=== PATIENT | female | born 1980 | race Caucasian/White ===

== ENCOUNTER 2018-10-02 00:08 | Inpatient (IN) | payer OTHER ==
[2018-10-02] VITALS (12 sets, daily range): BP systolic 107–146; BP diastolic 62–117
[~2018-10-02] VITALS: Ht 165.1 cm; Wt 118.4 kg
[~2018-10-02 00:08] MED LIST: CHOL500016 PO; CLON-331 PO; CYCL10TA29 PO; GABA-549 PO; LACT1CAP6 PO; LORA1TAB69 PO; MULT-1335 PO; NORE1TAB37 PO; OMEP-125 PO; VENL75CA58 PO; VITA-175 PO
[2018-10-02] MEDS ORDERED: ceFAZolin(*) 1 GM VIAL 3 GM in NS(*) 0.9% 100 ML BAG 100 ML IVPB ONE (08:20)
[2018-10-02] MEDS ORDERED: REMIFENTANIL HCL 1 MG VIAL ONE (08:35)
[2018-10-02] MEDS ORDERED: LIDOCAINE/SOD BICARB 8.4% SYR ID ONE (09:25)
[2018-10-02] MEDS ORDERED: BACITRACIN 50000 UNIT/VIAL 50,000 UNIT in NS 0.9% IRRIG(*) 1000ML PLCT 1,000 ML IR PRN (09:25)
[2018-10-02] MEDS ORDERED: FAMOTIDINE 20 MG/50 ML PREMIX IVPB ONE (09:25)
[2018-10-02] MEDS ORDERED: ceFAZolin(*) 2GM/D5W 50ML 50 ML IVPB ONE (09:25)
[2018-10-02] MEDS ORDERED: MIDAZOLAM 2 MG/2 ML VIAL IVP PRN (09:25)
[2018-10-02] MEDS ORDERED: NORMOSOL R SOLN(*) 1000 ML BAG 1,000 ML IV PRN (09:25)
[2018-10-02] MEDS ORDERED: ACETAMINOPHEN(*)1000 MG/100 ML 100 ML IVPB ONE (09:25)
[2018-10-02] MEDS ORDERED: PHENYLEPHRINE 10 MG/1 ML VIAL ONE (09:38)
[2018-10-02] MEDS ORDERED: ROCURONIUM BROM 10 MG/ML 5 ML ONE (09:38)
[2018-10-02] MEDS ORDERED: VANCOMYCIN 1 GM VIAL ONE (10:44)
[2018-10-02] MEDS ORDERED: ROPIVACAINE 0.2% 20 ML VIAL ONE (10:44)
[2018-10-02] MEDS ORDERED: HYDROmorphone HCL 2 MG/ML SDV ONE ×2 (10:59→12:20)
[2018-10-02] MEDS ORDERED: PROPOFOL EMUL(*) 10MG/ML 20 ML 180 ML ONE (11:18)
[2018-10-02] MEDS ORDERED: ONDANSETRON 4 MG/2 ML VIAL ONE (11:18)
[2018-10-02] MEDS ORDERED: DEXAMETHASONE SOD PHOS 10MG/ML ONE (11:18)
[2018-10-02] MEDS ORDERED: fentaNYL CITR 100 MCG/2 ML AMP ONE (11:47)
--- NOTE | 2018-10-02 12:21 | OPERATIVE REPORT 1 ---
EVENT DATE: October 02, 2018 SURGEON: Tylor Wyman MD ANESTHESIOLOGIST: Roddy Ewing MD ANESTHESIA: General endotracheal anesthesia. 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 POSTOPERATIVE DIAGNOSIS Failed cervical disk arthroplasty at C5-C7 with persistent neck pain. PROCEDURE PERFORMED 1. Removal of cervical disk arthroplasty. 2. Revision cervical diskectomy and fusion. 3. Placement of interbody device with fixation screws. IV FLUIDS 900 cc. ESTIMATED BLOOD LOSS 40 cc. IMPLANTS Size small 8 mm tall 6-degree lordotic interbody device from [employer] and 3.5 mm x 14 mm fixation screws from [employer]. SPECIMENS None. DRAINS 10-Filipino round Phillip-Neil drain. COMPLICATIONS None. DISPOSITION Post-Anesthesia Care Unit. INDICATIONS Ms. Kilgore is a 37-year old female who back in February 2017 underwent C6-C7 cervical disk arthroplasty at an outside facility. The surgery relieved her arm pain but the neck pain that she was having actually became worse. Over time, her arm symptoms essentially resolved. The neck pain was persistent, going from the neck into the periscapular region and then down the right arm. 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 She was, therefore, sent for bilateral facet injections at C6-C7 and she actually got good relief of her symptoms with that intervention so I ultimately offered her a revision surgery in the form of removal of the cervical disk arthroplasty device, revision, anterior cervical diskectomy and an interbody fusion using a Titan titanium interbody device. Prior to surgery, I explained in detail to the patient the possible risks of surgery. These risks include bleeding, infection, damage to surrounding structures, nerve root injury, spinal cord injury, spinal fluid leak, need for further surgery, persistent and/or worsening pain, , blindness, sexual dysfunction, autonomic nervous system dysfunction and other unforeseen medical and surgical complications. An understanding that in general spinal surgery is more predictive at improving extremity than arm pain was stressed. We also stressed the fact that due to the revision nature of the procedure outcomes are not necessarily as good and that there is a higher risk of potential complication secondary to the presence of scar tissue. She voiced an understanding. DESCRIPTION OF PROCEDURE On the date of surgery, the patient was met in the preoperative hold area and all questions were answered. The operative site was identified and marked by myself. Prior to surgery, she had been sent to an ENT physician for evaluation of the vocal cords, which were functioning normally bilaterally so we elected to go in on the right side versus the left side where the previous surgery had been performed. The patient was brought in good condition to the operating room and after succumbing to anesthesia was positioned in the supine position on a standard OR bed. All bony protuberances and soft tissues were well padded in the standard fashion. Care was taken to maintain appropriate perfusion pressures during anesthesia. Preoperative antibiotics were administered according to the appropriate timing schedule. At the conclusion of the procedure, sponge and needle counts were correct x2. A final time-out was undertaken by members of the operating team, confirming correct patient, correct levels and correct surgery. The patient was then prepped and draped in the standard sterile orthopedic fashion and a transverse incision was made on the right side of the cervical spine overlying the intended surgical levels. Sharp dissection was carried down to the platysma, which was divided. The interval medial to the sternocleidomastoid muscle was identified and a finger was used to palpate the carotid pulse. Blunt finger dissection was carried out medial to the carotid sheath coming down onto the anterior cervical spine. Self-retaining retractors were placed and distracted over the previously implant and a microscope was brought into the field. [place] pins were placed into the vertebral bodies of C6 and C7 and distracted. This distraction allowed us to examine the status of the disk arthroplasty device and it was immediately noted that there was no bonding or adhesion to the inferior C6 endplate. I was easily able to mobilize the superior metal portion of the implant and then I was able to use a forward angled curette to hook and remove the peak center of the implant. After that, it was quite easy to remove the metal endplate portion of the device superiorly and then I used an osteotome to tap against the inferior metal portion of the implant and that also came off of the C7 endplate quite easily and was also removed. The wound was irrigated with copious sterile saline solution and then I used forward angled and back angled curettes to complete the diskectomy and ensure good decompression of the foramina bilaterally. A #3 Kerr[place] was also used to remove further disk material from the foramen bilaterally and ensure good decompression. The inferior endplate of C6 was then burred down with a high-speed bur to ensure bleeding bone across both surfaces. I trialed an 8 mm rasp and that fit nicely so we first chose a size medium 8 mm high device and tapped that into place and then placed the fixation screws into the endplates through the integrated holes in the device. A lateral radiograph showed that device was perhaps a millimeter prowled into the spinal canal so I elected to revise that interbody spacer with a size small interbody spacer. This was tapped into place after removal of the medium implant and fixed in place with two 3.5 mm x 14 mm fixation screws. A lateral radiograph confirmed that it was in good position with no protrusion into the canal and was not prowled anteriorly. The screws were in good position as well. The wound was then irrigated with copious sterile saline and closed in layers using interrupted sutures for the platysma, inverted interrupted sutures for the subcutaneous tissue and then a running subcuticular skin stitch. A 10- Filipino round Phillip-Neil drain was left deep to the platysma. POSTOPERATIVE CARE PLAN The patient will remain in the hospital overnight. Her drain will be removed in the morning and she will likely be discharged home tomorrow. She will follow up with me in two weeks for wound check and examination. GAEL
[2018-10-02] MEDS ORDERED: DIAZEPAM 5 MG TAB PO PRN (13:10)
[2018-10-02] MEDS ORDERED: LR(*) 1000 ML BAG 1,000 ML IV PRN (13:10)
[2018-10-02] MEDS ORDERED: HYDROmorphone HCL 2 MG/ML SDV IVP PRN (13:10)
[2018-10-02] MEDS ORDERED: MAGNESIUM HYDROXIDE* 30ML UDCP PO PRN (13:10)
[2018-10-02] MEDS ORDERED: BENZOCAINE/MENTHOL 1 EACH LOZG PO PRN (13:10)
[2018-10-02] MEDS ORDERED: ACETAMINOPHEN 500 MG TAB PO PRN (13:10)
[2018-10-02] MEDS ORDERED: diphenhydrAMINE 25 MG CAP PO PRN (13:10)
[2018-10-02] MEDS ORDERED: ACETAMINOPHEN(*)1000 MG/100 ML 100 ML IVPB PRN (13:10)
[2018-10-02] MEDS ORDERED: FLUSH 10 ML SYR IVP PRN (13:10)
[2018-10-02] MEDS ORDERED: BISACODYL 10 MG SUPP PR PRN (13:10)
[2018-10-02] MEDS ORDERED: ONDANSETRON 4 MG/2 ML VIAL IVP PRN (13:10)
[2018-10-02] MEDS: APAP/HYDROCODONE 325/5 TAB PO PRN ×3 (13:31→22:29)
--- NOTE | 2018-10-02 13:53 | RADIOLOGY IMAGING REPORT ---
FACILITY: [facility] - [place] PATIENT NAME: Ruth nAn Kilgore : 1980 MR: [id number] V: [id number] EXAM DATE: ORDERING PHYSICIAN: CHAPIN BRIONES TECHNOLOGIST: Location: [facility] - [place] Patient: Ruth Ann Kilgore : 1980 Visit/Account:[id number] Date of Sevice: 10/02/2018 Exam type: CERVICAL SPINE 2 OR 3 VIEW History: ANTERIOR C6-7 DISCECTOMY FUSION WITH INSTRUMENTATION Comparison: November 07, 2017. Findings: A single cross table lateral view of the cervical spine demonstrates postsurgical changes from anteri or fusion at C6-7 with placement of support screws and intervertebral support cage. C7 is not ideall y seen due to technical factors. Incidentally noted is an endotracheal tube IMPRESSION: 1. As above Report Dictated By: Maral Naranjo MD at 10/02/2018 1:46 PM Report E-Signed By: Maral Naranjo MD at 10/02/2018 1:48 PM WSN:[id number]
[2018-10-02] MEDS ORDERED: BACITRACIN OINT 15 GM TUBE TP PRN (14:20)
--- NOTE | 2018-10-02 14:25 | Hospitalist Consultation ---
History of Present Illness Requesting Physician Dr. Wyman Reason for Consult Medical Management of comorbidities Chief Complaint s/p cervical disk arthroplasty History of Present Illness She was admitted s/p cervical disk arthroplasty. It is reported the surgery went well and without complication. History Problems: (1) GERD (gastroesophageal reflux disease) Status: Chronic (2) Depression Status: Chronic Home Meds Reported Medications Norethindrone-Ethinyl Estrad (PIRMELLA) 1 Each Tablet, PO QDAY 09/25/18 Lactobacillus Combination No.4 (PROBIOTIC) 1 Each Capsule, 1 EACH PO QDAY, CAPSULE 09/25/18 Cholecalciferol (Vitamin D3) (VITAMIN D3) 5,000 Unit Capsule, 5000 UNIT PO QDAY, CAPSULE 09/25/18 Vitamin B Complex (B COMPLEX) 1 Each Tablet, 1 EACH PO QDAY 09/25/18 Multivitamin With Minerals (MULTIPLE VITAMIN) 1 Each Tablet, 1 EACH PO DAILY, TAB 09/25/18 Omeprazole (OMEPRAZOLE) 20 Mg Capsule.dr, 1 CAP PO QDAY, CAP 09/25/18 Clonazepam (CLONAZEPAM) 0.5 Mg Tablet, 0.5 MG PO PRN, #6 TAB 09/25/18 Loratadine/Pseudoephedrine (CLARITIN-D 24 HOUR TABLET) 1 Each Tab.er.24h, 1 EACH PO QDAY 09/25/18 Venlafaxine Hcl (EFFEXOR XR) 75 Mg Cap.er.24h, 75 MG PO QDAY 09/25/18 Cyclobenzaprine Hcl (CYCLOBENZAPRINE HCL) 10 Mg Tablet, 10 MG PO QDAY, #9 TAB 09/25/18 Gabapentin (GABAPENTIN) 300 Mg Capsule, 1200 MG PO TID, CAPSULE 09/25/18 Allergies: Coded Allergies: adhesive (Verified Allergy, Mild, RASH, 09/25/18) Patient History: FH: CHF (congestive heart failure) FH: diabetes mellitus Hx Smoking: No Smoking Status: Never Smoker Caffeine Intake: Soda Caffeine/Cups Per Day: 2 CANS/DAY Hx Substance Use Disorder: No Social Drug Use: Never History of IV Drug Use: No Review of Systems All Systems Reviewed/Normal: Yes, Except as Noted Exam Vital Signs Vital Signs Date Time Temp Pulse Resp B/P (MAP) Pulse Ox O2 Delivery O2 Flow Rate FiO2 10/02/18 13:45 83 116/107 (110) 96 2.0 10/02/18 13:17 Nasal Cannula 10/02/18 13:17 98.1 16 General Appearance: Alert, Awake, No Acute Distress, Afebrile Neuro: No Gross deficits Cardiovascular: Regular Rate and Rhythm Respiratory: No Respiratory Distress, Clear to Auscultation Psych: Alert & Oriented X3, Appropriate Mood & Affect Assessment and Plan Problems: (1) S/P cervical discectomy Status: Acute Assessment & Plan: Followed by Dr. Wyman. (2) Depression Status: Chronic Assessment & Plan: Continue chronic Effexor. (3) GERD (gastroesophageal reflux disease) Status: Chronic Assessment & Plan: Continue chronic PPI. Venous Thromboembolism Antithrombotics Is Pt On Any Antithrombotics?: No Exam Sepsis Risk: No Definite Risk KAREN KEYES E [employer] Oct 02, 2018 14:25
[2018-10-02] MEDS: oxyCODONE HCL 5 MG CAP PO PRN ×2 (16:17→19:48)
--- NOTE | 2018-10-02 16:25 | NUR ---
Physical Therapy Impression PT eval complete. Pt demonstrated safe and independent functional mobility. Pt safe to DC when medically appropriate. Physical Therapy Goals Patient's Goals
[2018-10-02] MEDS ORDERED: NS(*) 0.9% 500 ML BAG 500 ML ONE (16:59)
[2018-10-02] MEDS: ceFAZolin 3 GM in NS 0.9% 100 ML BAG IVPB SCH (17:05)
[2018-10-02] MEDS ORDERED: HYDROCORTISONE 1% CR 28.35 GM TP PRN (20:10)
[2018-10-02] MEDS: DOCUSATE SODIUM 100 MG CAP PO SCH ×2 (20:43→20:46)
[2018-10-02] MEDS: GABAPENTIN 300 MG CAP PO SCH (20:43)
[2018-10-03] MEDS: ceFAZolin 3 GM in NS 0.9% 100 ML BAG IVPB SCH ×2 (00:39→08:32)
[2018-10-03 03:02] VITALS: BP 101/70
[2018-10-03] MEDS: APAP/HYDROCODONE 325/5 TAB PO PRN ×2 (03:07→09:39)
[2018-10-03] MEDS ORDERED: DOCU240C84 PO (07:32)
[2018-10-03] MEDS ORDERED: LOR5/325 PO (07:32)
[2018-10-03 07:46] VITALS: BP 99/63
[2018-10-03] MEDS: oxyCODONE HCL 5 MG CAP PO PRN (07:53)
[2018-10-03] MEDS: GABAPENTIN 300 MG CAP PO SCH (08:32)
[2018-10-03] MEDS: DOCUSATE SODIUM 100 MG CAP PO SCH (08:33)
[2018-10-03] MEDS ORDERED: VENLAFAXINE XR 75 MG CAPCR PO SCH (09:00)
[2018-10-03] MEDS ORDERED: PANTOPRAZOLE SOD 40 MG TABEC PO SCH (09:00)
--- NOTE | 2018-10-03 09:19 | Hospitalist Progress Note ---
Subjective Progress Notes Subjective She was admitted s/p cervical spine surgery. She had no acute events overnight. She would like to go home today. Patient Complains of: Cardiovascular: No: Chest Pain Respiratory: No: Shortness of Breath Physical Exam Vital Signs Date Time Temp Pulse Resp B/P (MAP) Pulse Ox O2 Delivery O2 Flow Rate FiO2 10/03/18 08:34 94 10/03/18 08:34 Room Air 10/03/18 07:46 99.0 88 18 99/63 (75) 10/03/18 03:02 1.0 Intake and Output 10/03/18 01:00 Intake Total 1990 ml Output Total 45 ml Balance 1945 ml Intake Oral 490 ml IV Total 1500 ml Output Drainage Total 20 ml Other 25 ml # Voids 2 General Appearance: Alert, Awake, No Acute Distress, Afebrile Neuro: No Gross deficits Cardiovascular: Regular Rate and Rhythm Respiratory: No Respiratory Distress, Clear to Auscultation Psych: Alert & Oriented X3, Appropriate Mood & Affect Assessment and Plan Problems: (1) S/P cervical discectomy Status: Acute Assessment & Plan: Followed by Dr. Wyman. (2) Depression Status: Chronic Assessment & Plan: Continue chronic Effexor. (3) GERD (gastroesophageal reflux disease) Status: Chronic Assessment & Plan: Continue chronic PPI. Exam Sepsis Risk: No Definite Risk KAREN KEYES [employer] Oct 03, 2018 09:19
== END 2018-10-03 10:25 | disposition home or self-care (01) | DRG 472 ==
LOC: OR 00:08 → INTOOBSV 13:17 → OBSVTOIN 13:17 → MED 13:17
PROVIDERS: ADMIT Orthopaedic Surgery; ATTEND Orthopaedic Surgery
PROC: 0RP10AZ Removal of Interbody Fusion Device from Cervical Vertebral Joint, Open Approach (ICD-10-PCS; 2018-10-02)
PROC: 0RG10A0 Fusion of Cervical Vertebral Joint with Interbody Fusion Device, Anterior Approach, Anterior Column, Open Approach (ICD-10-PCS; principal; 2018-10-02 09:20)
PROC: 0RT30ZZ Resection of Cervical Vertebral Disc, Open Approach (ICD-10-PCS; 2018-10-02 09:20)
DX: T84.098A Other mechanical complication of other internal joint prosthesis, initial encounter (principal); Z68.41 Body mass index [BMI] 40.0-44.9, adult; M50.223 Other cervical disc displacement at C6-C7 level; F32.9 Major depressive disorder, single episode, unspecified; K21.9 Gastro-esophageal reflux disease without esophagitis; Z98.1 Arthrodesis status; M79.7 Fibromyalgia; Z91.048 Other nonmedicinal substance allergy status; E66.01 Morbid (severe) obesity due to excess calories; Z98.84 Bariatric surgery status
CPT/HCPCS: 36415; 72020; 81025; 86850; 86900; 86901; 97161; C1713; J0131; J0690; J1100; J1170; J2250; J2370; J2405; J2704; J2795; J3010; J3370; J7050; Q0163